=== PATIENT | male | born 1960 | race Caucasian/White ===

== ENCOUNTER 2017-10-16 11:19 | Inpatient (IN) ==
[2017-10-16] MEDS ORDERED: Ondansetron 4 MG/2 ML VIAL IVP PRN (14:44)
[2017-10-16] MEDS ORDERED: Naloxone 0.4 MG/ML INJ IVP PRN (14:44)
--- NOTE | 2017-10-16 14:55 | Internal Med History&Physical ---
<Salvador Pérez J - Last Filed: 10/16/17 17:23> Date of Encounter: 10/16/17 Time of Encounter: 14:52 Assessment and Plan (1) GI bleed Status: Acute Bright red blood and melena with bowel movements today. Prior history of GI bleed. Prior Kelly repair. Patient appears to have L GIB. Denies any palpitations, tachycardia, dizziness. Remains hemodynamically stable. H&H 12.2 /34.3. Patient reports he had a colonoscopy approximately 4-1/2 years ago without significant findings. GI Dr. Gilbert has seen the patient and is planning for EGD/C-Scopy in a.m. Prednisone Serial H&H every 6 hours Type and screen Clear liquid diet for now and nothing by mouth at midnight Continue PPI drip EPCDs DVT prophylaxis continues telemetry, SPO2 monitoring CBC D and BMP in the a.m. Qualifiers: GI bleed type/associated pathology: melena Qualified Code(s): K92.1 - Melena (2) Syncope Status: Acute Reporting a syncopal event this morning likely secondary to blood loss from lower GI bleed. Reports that he had a loss of consciousness for just a few seconds. Denies any tachycardia, palpitations, chest pain, lightheadedness at this time. No active bleeding noted. Remains hemodynamically stable. EKG negative for ischemia, lab work unremarkable Up with assist only Continuous telemetry Qualifiers: Encounter type: initial encounter Qualified Code(s): T67.1XXA - Heat syncope, initial encounter Internal Medicine - H&P: HPI Chief complaint: gi bleed Admitted From: Home Plans for Post Hospital Care: Home History of present illness: Mr. Howard is a 57 year old male in Kelly fundoplication and prior history of GI bleed presents today with a mix of bright red and dark red blood with bowel movements and a syncopal event. No history of alcohol abuse, no NSAID use, no weight loss, change in bowel pattern, stool size and no prior history of colon cancer or family history of colon cancer. Patient reports he is not on any blood thinners. Hemoglobin and hematocrit stable at 12.2/34.3 Past Med Surg Social Fam HX - Past Medical History Medical history: asthma, GERD, GI bleed Psychiatric history: no psych history - Past Surgical History Surgical History: herniorrhaphy - Social History Smoking Status: Former smoker Smokeless Tobacco Status: No Alcohol use: occasionally Drug use: none - Additional Family History Additional family history: Noncontributory, no family history of colon cancer Internal Medicine - H&P: Meds 3 Allergy/AdvReac Type Severity Reaction Status Date / Time codeine Allergy Swelling Verified 10/16/17 14:51 of Lip/Tongue/Throat All Systems PM: A 10-system review of systems was performed and is negative for pertinent findings except as documented above in the HPI. Review of systems: REVIEW OF SYSTEMS GENERAL: Negative for any nausea, vomiting, fevers, chills, or weight loss. NEUROLOGIC: Negative for any blurry vision, blind spots, double vision, facial asymmetry, dysphagia, dysarthria, hemiparesis, hemisensory deficits, vertigo, ataxia. HEENT: Negative for any head trauma, neck trauma, neck stiffness, photophobia, phonophobia, sinusitis, rhinitis. CARDIAC: Negative for any chest pain, dyspnea on exertion, paroxysmal nocturnal dyspnea, peripheral edema. PULMONARY: Negative for any shortness of breath, wheezing, COPD, or TB exposure. GASTROINTESTINAL: Negative For nausea, vomiting,, change in stool size, shape, bowel pattern. positive for red blood per rectum, melena, and right lower quadrant abdominal pain GENITOURINARY: Negative for any dysuria, hematuria, incontinence. INTEGUMENTARY: Negative for any rashes, cuts, insect bites. RHEUMATOLOGIC: Negative for any joint pains, photosensitive rashes, history of vasculitis or kidney problems. HEMATOLOGIC: Negative for any abnormal bruising, frequent infections or bleeding. - Constitutional Vitals: Temp Pulse Resp BP Pulse Ox 98.7 F 76 15 127/74 98 10/16/17 13:51 10/16/17 13:51 10/16/17 13:51 10/16/17 13:51 10/16/17 13:51 General appearance: Present: cooperative, A&O X 3, no acute distress, answers questions appropriately Exam: PHYSICAL EXAMINATION: GENERAL: The patient is a well-developed, well-nourished male in no apparent distress. He is alert and oriented x3. VITAL SIGNS: Temperature 97.9, respiratory rate 16 and 100% on room air, 73 pulse rate and blood pressure of 120/75 HEENT: Head is normocephalic and atraumatic. Extraocular muscles are intact. Pupils are equal, round, and reactive to light and accommodation. Nares appeared normal. Mouth is well hydrated and without lesions. Mucous membranes are moist. Posterior pharynx clear of any exudate or lesions. NECK: Supple. No carotid bruits. No lymphadenopathy or thyromegaly. LUNGS: Clear to auscultation. HEART: Regular rate and rhythm without murmur. ABDOMEN: Soft, and nondistended. Positive bowel sounds. No hepatosplenomegaly was noted. Mild tenderness to palpation right lower quadrant and epigastrium. EXTREMITIES: Without any cyanosis, clubbing, rash, lesions or edema. NEUROLOGIC: Cranial nerves II through XII are grossly intact. PSYCHIATRIC: Flat affect, but denies suicidal or homicidal ideations. SKIN: No ulceration or induration present. Internal Med - H&P Results - Labs CBC & Chem 7: 10/16/17 15:28 10/16/17 16:03 - EKG Data -: EKG Interpreted by Myself EKG shows normal: sinus rhythm Rate: normal - EKG Data Prior EKG available for review: no Interpretation IM: normal EKG - Diagnostic Studies CT scan - abdomen Status: image reviewed by me Additional comments: CT of abdomen completed at [facility] shows haziness around the pylorus and first portion of duodenum which may be edema likely possible the patient has duodenitis or PUD. Additionally there is some mild thickness of the transverse colon - VTE Reasons for not Prescribing Prophylaxis: Medical contraindication <Diana Brooks - Last Filed: 11/10/17 08:12> Date of Encounter: 11/10/17 Internal Medicine - H&P: HPI History of present illness: Mr. Howard is a 57 year old male All Systems PM: A 10-system review of systems was performed and is negative for pertinent findings except as documented above in the HPI. - Constitutional Vitals: Temp Pulse Resp BP Pulse Ox 98.2 F 69 16 123/63 97 10/18/17 15:46 10/18/17 15:46 10/18/17 15:46 10/18/17 15:46 10/18/17 15:46 Internal Med - H&P Results - Labs CBC & Chem 7: 10/18/17 07:17 10/18/17 07:17 - Attending Attestation I personally and independently interviewed and examined the patient with CLOTH FEEDER, and I reviewed the patient's medical record with her. I am in agreement with the assessment and proposed treatment plan. I discussed my findings and recommendation with the patient and answer all questions. The patient's medical records were edited to accurately reflect this encounter.
[2017-10-16] MEDS: Pantoprazole 80 MG in 0.9 % Sodium Chloride 250 ML IVC SCH (15:25)
[2017-10-16] MEDS: 0.9 % Sodium Chloride 1,000 ML IVC SCH (15:26)
[2017-10-16] MEDS ORDERED: Pantoprazole 40 MG VIAL ONE (15:39)
[2017-10-16 15:40] LABS: Hematocrit 31.5 % (37.5-50.1); Hemoglobin 10.6 g/dL (12.9-16.9)
--- NOTE | 2017-10-16 15:41 | General Surgery Consult Note ---
Date of Encounter: 10/16/17 Time of Encounter: 15:39 Assessment and Plan (1) GI bleed Current Visit: Yes Status: Acute 57M with LGIB with associated syncope; currently does not report dizziness or light headedness; - CLD - NPO at midnight - bowel prep - serial h/h - full set up labs - plan for EGD/c-scopy in AM Qualifiers: GI bleed type/associated pathology: melena Qualified Code(s): K92.1 - Melena History of Present Illness Reason for consult: other (lower GI bleeding) History of present illness: 57M h/o GERD s/p marjan, otherwise healthy, prior bleeding episode (UGIB 2/2 gastric ulcers 2/2 NSAID use) in november 2016 who presented with symptomatic LGIB. Patient states that he experienced several episodes of syncope (lasting only a few seconds). He states that he had enough melena that it scared him and he presented for evaluation. No reports of use of NSAIDS, anticoagulants, EtOH abuse, liver or kidney issues nor prior masses, diverticulosis; His last colonoscopy was baout 5 years ago and he was given clearance for [address] scan was obtained which was reviewed and interpreted by me personally Past Med Surg Social Fam HX - Past Medical History Medical history: asthma, GERD, GI bleed Psychiatric history: no psych history - Past Surgical History Surgical History: herniorrhaphy, other (Marjan fundoplication) - Social History Smoking Status: Former smoker Smokeless Tobacco Status: No Alcohol use: occasionally Drug use: none - Additional Family History Additional family history: non contributory Medications and Allergies 3 Allergy/AdvReac Type Severity Reaction Status Date / Time codeine Allergy Swelling Verified 10/16/17 14:51 of Lip/Tongue/Throat Review of Systems All systems PM: A 10-system review of systems was performed and is negative for pertinent findings except as documented above in the HPI. General Surgery Exam Initial Vital Signs Pulse Pulse Ox 79 96 10/16/17 13:49 10/16/17 13:49 - General physical appearance well developed, well nourished, no distress - Eyes normal ocular movement - ENT normocephalic - Neck no lymphadectomy - Respiratory normal expansion, normal respiratory effort - Cardiovascular Cardiovascular exam: Present: RRR - Abdomen Abdomen general surgery: Present: soft, tender Abdominal Tenderness: Present: RLQ - Integumentary Integumentary general surgery: Present: warm and dry - Neurologic Present: CN 2-12 grossly intact - Musculoskeletal Present: other (FROM in UE/LE bilaterally) - Psychiatric Psychiatric general surgery: Present: A&Ox3 Exam Initial Vital Signs Pulse Pulse Ox 79 96 10/16/17 13:49 10/16/17 13:49 Results - Labs All other labs normal. - Imaging CT scan - abdomen: report reviewed, image reviewed CT scan - pelvis: report reviewed, image reviewed Consult Discharge Plan - Plan Referrals: Krystian Bcah DO [Primary Care Provider] -
[2017-10-16] MEDS ORDERED: Polyethylene Glycol 3350 255 GM POWDER PO ONE (15:48)
[2017-10-16 16:31] LABS: INR 1.1; Prothrombin Time 11.9 Seconds (9.4-12.1)
[2017-10-16 16:33] LABS: Alanine Aminotransferase 8 Units/L (7-52); Albumin 3.3 g/dL (3.5-5.7); Albumin/Globulin Ratio 1.9 (1.1-2.2); Alkaline Phosphatase 55 Units/L (34-104); Aspartate Amino Transferase 11 Units/L (13-39); BUN/Creatinine Ratio 21 (6-26); Bilirubin,Total 0.6 mg/dL (0.3-1.0); Blood Urea Nitrogen 20 mg/dL (6-20); Carbon Dioxide 24 mEq/L (23-29); Chloride 109 mEq/L (98-107); Globulin 1.7 g/dL (2.4-3.5); Glucose 119 mg/dL (70-105); Osmolality,Calculated 288 (280-300); Potassium 4.1 mEq/L (3.5-5.1); Sodium 137 mEq/L (136-145); eGFR For African Americans > 60 (> 60); eGFR For Non-African Americans > 60 (> 60)
[2017-10-16 16:34] LABS: Activated Partial Thrombo Time 27.9 Seconds (26.0-36.0)
[2017-10-16] MEDS ORDERED: SODIUM CHLORIDE/NAHCO3/KCL/PEG 4,000 ML SOLN.RECON PO ONE (17:00)
[2017-10-16 22:09] LABS: Hemoglobin 9.2 g/dL (12.9-16.9)
[2017-10-17] MEDS: 0.9 % Sodium Chloride 1,000 ML IVC SCH (01:02)
[2017-10-17] MEDS: Pantoprazole 80 MG in 0.9 % Sodium Chloride 250 ML IVC SCH ×2 (03:49→16:42)
[2017-10-17 05:56] LABS: Alanine Aminotransferase 7 Units/L (7-52); Albumin 2.9 g/dL (3.5-5.7); Albumin/Globulin Ratio 2.2 (1.1-2.2); Alkaline Phosphatase 52 Units/L (34-104); Aspartate Amino Transferase 11 Units/L (13-39); BUN/Creatinine Ratio 13 (6-26); Bilirubin,Total 0.4 mg/dL (0.3-1.0); Blood Urea Nitrogen 13 mg/dL (6-20); Calcium 7.7 mg/dL (8.6-10.3); Carbon Dioxide 25 mEq/L (23-29); Chloride 112 mEq/L (98-107); Globulin 1.3 g/dL (2.4-3.5); Glucose 104 mg/dL (70-105); Osmolality,Calculated 286 (280-300); Sodium 138 mEq/L (136-145); Total Protein 4.2 g/dL (6.4-8.9); eGFR For African Americans > 60 (> 60); eGFR For Non-African Americans > 60 (> 60)
[2017-10-17 06:06] LABS: INR 1.1
[2017-10-17 06:09] LABS: Activated Partial Thrombo Time 26.9 Seconds (26.0-36.0)
[2017-10-17 06:17] LABS: Basophils % 0.4 %; Eosinophils # 0.1 K/mcL (0.0-0.6); Eosinophils % 2.1 %; Hematocrit 24.9 % (37.5-50.1); Hemoglobin 8.5 g/dL (12.9-16.9); Immature Granulocytes % 0.2 % (0-4); Lymphocytes # 1.3 K/mcL (0.6-4.6); Mean Corpuscular HGB Conc 34.1 g/dL (31.6-35.5); Mean Corpuscular Hemoglobin 30.2 pg (28.0-33.3); Mean Corpuscular Volume 88.6 fL (83.0-100.0); Mean Platelet Volume 11.4 fL (9.4-12.4); Monocytes # 0.3 K/mcL (0.0-1.3); Monocytes % 6.1 %; Neutrophils # 3.1 K/mcL (1.6-8.9); Platelet Count 161 K/mcL (140-400); Red Blood Count 2.81 M/mcL (4.19-5.50); Red Cell Distribution Width 13.1 % (11.5-14.5); Segmented Neutrophils % 64.2 %
[2017-10-17] MEDS ORDERED: *HR* Midazolam HCl 5 MG/5 ML VIAL IVP ONE (08:04)
[2017-10-17] MEDS ORDERED: *HR* FentaNYL (PF) 100 MCG/2 ML VIAL ONE (08:05)
--- NOTE | 2017-10-17 08:25 | Pre-Sedation Evaluation ---
Pre-sedation evaluation - Pre-sedation checklist Date of procedure: 10/17/17 Procedure: egd/colon Recent Vitals: Last Vital Signs Temp 98.3 F 10/17/17 08:13 Pulse 72 10/17/17 08:13 Resp 16 10/17/17 08:13 BP 136/75 10/17/17 08:13 Pulse Ox 100 10/17/17 08:13 H&P (including ROS) documented in medical record: Yes Previous reaction to sedatives/anesthetics: No Dietary Status: NPO after Midnight Dentition: No loose teeth or bridges ASA Classification *see protocol: CLASS II-Mild systemic disease
[2017-10-17] MEDS ORDERED: *HR* Promethazine 25 MG/ML VIAL IVP ONE (08:26)
[2017-10-17] MEDS ORDERED: *HR* FentaNYL (PF) 100 MCG/2 ML VIAL IVP ONE (08:26)
[2017-10-17] MEDS: *HR* Midazolam HCl 5 MG/5 ML VIAL IVP ONE ×3 (08:30→08:58)
[2017-10-17] MEDS ORDERED: 0.9 % Sodium Chloride 1,000 ML IVC SCH (08:30)
[2017-10-17] MEDS ORDERED: Tetracaine/Benzocaine/Butamben 200MG/SPRAY (100SPY/BOT) MM ONE (08:33)
[2017-10-17 12:50] LABS: Hematocrit 25.5 % (37.5-50.1); Hemoglobin 8.7 g/dL (12.9-16.9)
--- NOTE | 2017-10-17 12:57 | General Surgery Progress Note ---
Date of Encounter: 10/17/17 Time of Encounter: 08:00 - Assessment and Plan (1) GI bleed Current Visit: Yes Status: Acute 57M with LGIB with associated syncope; currently does not report dizziness or light headedness; s/p EGD; no obvious lower and upper GI lesions to account for bleeding; - diet as tolerated - trend h/h - consider RBC tagged cell scan if continues to drop - transfuse per primary team - consider GI consult for push enteroscopy Qualifiers: GI bleed type/associated pathology: melena Qualified Code(s): K92.1 - Melena Subjective Patient reports: no new complaints, feels better, bowel movement (non bloody) Objective Vital Signs - Last 8 Hours Temp Pulse Resp BP Pulse Ox 10/17/17 11:29 97.8 F 67 16 96/66 100 10/17/17 09:15 75 16 104/54 99 10/17/17 09:10 71 16 92/54 100 10/17/17 09:05 78 16 105/60 98 10/17/17 09:00 74 16 109/62 100 10/17/17 08:55 72 16 88/39 100 10/17/17 08:50 69 16 100/60 100 10/17/17 08:45 80 16 122/63 100 10/17/17 08:40 72 16 118/60 100 10/17/17 08:35 78 16 112/57 100 10/17/17 08:30 75 16 118/69 100 10/17/17 08:13 98.3 F 72 16 136/75 100 10/17/17 07:20 98.3 F 68 14 113/56 100 Intake and Output 10/16/17 10/17/17 10/17/17 23:59 07:59 15:59 Intake Total 500 / 500 3250 / 3250 500 / 500 Output Total 600 / 600 550 / 550 Balance -100 / -100 2700 / 2700 500 / 500 Intake: IV Fluids 1250 / 1250 500 / 500 0.9 % Sodium Chloride 1,000 ML 1000 / 1000 500 / 500 @ 50 mls/hr IVC .Q20H YUNG Rx#: [id number] Protonix 80 MG In 0.9 % Sodium 250 / 250 Chloride 250 ML @ 25 mls/hr IVC .Q10H YUNG Rx#:[id number] Oral 500 / 500 2000 / 2000 Output: Urine 600 / 600 550 / 550 Other: Stool Size Moderate Moderate Stool Consistency liquid liquid Stool Color Blood Tinged # Voids 1 # Bowel Movements 1 Weight 77.9 kg Blood Glucose* 110 Patient Weight 10/17/17 23:59 Weight 77.9 kg - General physical appearance well developed, well nourished, no distress - Eyes normal ocular movement - Respiratory normal expansion, normal respiratory effort - Cardiovascular Cardiovascular exam: Present: RRR - Abdomen Abdomen: Present: soft, non tender - Integumentary no rash - Neurologic CN 2-12 grossly intact - Psychiatric oriented to time, oriented to person, oriented to place - Labs 10/17/17 12:28 10/17/17 05:10 Diabetes panel 10/16/17 10/17/17 Range/Units 16:03 05:10 Sodium 137 138 (136-145) mEq/L Potassium 4.1 4.0 (3.5-5.1) mEq/L Chloride 109 H 112 H (98-107) mEq/L Carbon Dioxide 24 25 (23-29) mEq/L BUN 20 13 (6-20) mg/dL Creatinine 0.94 1.01 (0.70-1.30) mg/dL Glucose 119 H 104 (70-105) mg/dL Calcium 8.0 L 7.7 L (8.6-10.3) mg/dL AST 11 L 11 L (13-39) Units/L ALT 8 7 (7-52) Units/L Alkaline Phosphatase 55 52 (34-104) Units/L Albumin 3.3 L 2.9 L (3.5-5.7) g/dL Calcium panel 10/16/17 10/17/17 Range/Units 16:03 05:10 Calcium 8.0 L 7.7 L (8.6-10.3) mg/dL Albumin 3.3 L 2.9 L (3.5-5.7) g/dL Pituitary panel 10/16/17 10/17/17 Range/Units 16:03 05:10 Sodium 137 138 (136-145) mEq/L Potassium 4.1 4.0 (3.5-5.1) mEq/L Chloride 109 H 112 H (98-107) mEq/L Carbon Dioxide 24 25 (23-29) mEq/L BUN 20 13 (6-20) mg/dL Creatinine 0.94 1.01 (0.70-1.30) mg/dL Glucose 119 H 104 (70-105) mg/dL Calcium 8.0 L 7.7 L (8.6-10.3) mg/dL Adrenal panel 10/16/17 10/17/17 Range/Units 16:03 05:10 Sodium 137 138 (136-145) mEq/L Potassium 4.1 4.0 (3.5-5.1) mEq/L Chloride 109 H 112 H (98-107) mEq/L Carbon Dioxide 24 25 (23-29) mEq/L BUN 20 13 (6-20) mg/dL Creatinine 0.94 1.01 (0.70-1.30) mg/dL Glucose 119 H 104 (70-105) mg/dL Calcium 8.0 L 7.7 L (8.6-10.3) mg/dL Total Bilirubin 0.6 0.4 (0.3-1.0) mg/dL AST 11 L 11 L (13-39) Units/L ALT 8 7 (7-52) Units/L Alkaline Phosphatase 55 52 (34-104) Units/L Albumin 3.3 L 2.9 L (3.5-5.7) g/dL - VTE Reasons for not Prescribing Prophylaxis: Medical contraindication Documentation of Mechanical Device: Intermittent pneumatic compression device Consult Discharge Plan - Plan Referrals: Krystian Bach DO [Primary Care Provider] - 10/24/17 1:45 pm
--- NOTE | 2017-10-17 19:01 | Internal Med Progress Note ---
Date of Encounter: 10/17/17 Time of Encounter: 11:00 - Assessment and plan (1) GI bleed Current Visit: Yes Status: Acute Assessment and plan: -General surgery following with recommendations to consider RBC tagged cell scan if continues to drop -Consider GI consult for push enteroscopy Qualifiers: GI bleed type/associated pathology: melena Qualified Code(s): K92.1 - Melena (2) Syncope Current Visit: Yes Status: Acute Assessment and plan: -Suspect secondary to acute blood loss anemia due to suspected GI bleed Qualifiers: Encounter type: initial encounter Qualified Code(s): T67.1XXA - Heat syncope, initial encounter - Subjective Interval history: Hemoglobin stable but continues to trend downward this morning Patient is hemodynamically stable - Constitutional Vitals: Temp Pulse Resp BP Pulse Ox 98.4 F 74 16 107/65 98 10/17/17 15:47 10/17/17 15:47 10/17/17 15:47 10/17/17 15:47 10/17/17 15:47 General appearance: Present: cooperative, A&O X 3, no acute distress, answers questions appropriately - Respiratory Respiratory exam: Present: CTAB. Absent: accessory muscle use, rales, rhonchi, wheezes - Cardiovascular Cardiovascular exam: Present: RRR, +S1, +S2. Absent: diastolic murmur, gallop, rubs, systolic murmur Internal Medicine: Result - Labs CBC & Chem 7: 10/17/17 12:28 10/17/17 05:10 Labs: Short CBC 10/16/17 10/17/17 10/17/17 Range/Units 21:58 05:10 12:28 WBC 4.8 (4.3-11.1) K/mcL Hgb 9.2 L 8.5 L 8.7 L (12.9-16.9) g/dL Hct 27.0 L 24.9 L 25.5 L (37.5-50.1) % Plt Count 161 (140-400) K/mcL Neutrophils # 3.1 (1.6-8.9) K/mcL BMP 10/17/17 05:10 Sodium 138 Potassium 4.0 Chloride 112 H Carbon Dioxide 25 BUN 13 Creatinine 1.01 Glucose 104 Calcium 7.7 L Liver Function 10/17/17 Range/Units 05:10 Total Bilirubin 0.4 (0.3-1.0) mg/dL AST 11 L (13-39) Units/L ALT 7 (7-52) Units/L Alkaline Phosphatase 52 (34-104) Units/L Albumin 2.9 L (3.5-5.7) g/dL - ABG Interpretation ABG results: PT/INR, D-dimer PT 12.0 Seconds (9.4-12.1) 10/17/17 05:10 - VTE Reasons for not Prescribing Prophylaxis: Medical contraindication Documentation of Mechanical Device: Intermittent pneumatic compression device Consult Discharge Plan - Plan Referrals: Krystian Bach DO [Primary Care Provider] - 10/24/17 1:45 pm
[2017-10-18] MEDS: Pantoprazole 80 MG in 0.9 % Sodium Chloride 250 ML IVC SCH ×2 (03:10→13:18)
[2017-10-18 07:30] LABS: Basophils % 0.4 %; Eosinophils # 0.2 K/mcL (0.0-0.6); Eosinophils % 3.3 %; Hematocrit 24.5 % (37.5-50.1); Hemoglobin 8.5 g/dL (12.9-16.9); Immature Granulocytes % 0.2 % (0-4); Lymphocytes # 1.2 K/mcL (0.6-4.6); Lymphocytes % 25.3 %; Mean Corpuscular HGB Conc 34.7 g/dL (31.6-35.5); Mean Corpuscular Hemoglobin 30.1 pg (28.0-33.3); Mean Corpuscular Volume 86.9 fL (83.0-100.0); Mean Platelet Volume 10.4 fL (9.4-12.4); Monocytes # 0.3 K/mcL (0.0-1.3); Monocytes % 5.7 %; Platelet Count 153 K/mcL (140-400); Red Blood Count 2.82 M/mcL (4.19-5.50); Segmented Neutrophils % 65.1 %
[2017-10-18 08:05] LABS: BUN/Creatinine Ratio 10 (6-26); Blood Urea Nitrogen 10 mg/dL (6-20); Calcium 8.2 mg/dL (8.6-10.3); Carbon Dioxide 26 mEq/L (23-29); Chloride 108 mEq/L (98-107); Glucose 99 mg/dL (70-105); Osmolality,Calculated 285 (280-300); Potassium 3.6 mEq/L (3.5-5.1); Sodium 138 mEq/L (136-145); eGFR For African Americans > 60 (> 60); eGFR For Non-African Americans > 60 (> 60)
--- NOTE | 2017-10-18 08:38 | General Surgery Progress Note ---
<Dereck North - Last Filed: 10/18/17 08:52> Date of Encounter: 10/18/17 Time of Encounter: 08:37 - Assessment and Plan (1) GI bleed Current Visit: Yes Status: Acute hgb drop 8.7 -> 8.5. currently clinically stable and asymptomatic. tolerating full diet. EGD on 10/16/2017 - no obvious lower and upper GI lesions to account for bleeding. - continue full diet - trend h/h - may consider tagged RBC if hgb continues to drop, but currently hgb is stable and patient is asymptomatic - consider GI consult for push enteroscopy Qualifiers: GI bleed type/associated pathology: melena Qualified Code(s): K92.1 - Melena Subjective Patient reports: no new complaints, feels better, pain is less, tolerating liquids well, tolerating a regular diet, voiding w/o difficulty, flatus, bowel movement, afebrile Narrative: Patient continues to feel like he's improving. he had a bowel movement prior to the scope yesterday, he reports no blood in his stool. Objective Vital Signs - Last 8 Hours Temp Pulse Resp BP Pulse Ox 10/18/17 07:17 98.0 F 66 16 117/64 96 10/18/17 04:38 98.1 F 77 19 112/64 98 Intake and Output 10/17/17 10/18/17 10/18/17 23:59 07:59 15:59 Intake Total 900 / 900 450 / 450 Output Total 1700 / 1700 700 / 700 Balance -800 / -800 -250 / -250 Intake: IV Fluids 250 / 250 Protonix 80 MG In 0.9 % Sodium 250 / 250 Chloride 250 ML @ 25 mls/hr IVC .Q10H YUNG Rx#:[id number] Oral 900 / 900 200 / 200 Output: Urine 1700 / 1700 700 / 700 Other: Meal Dinner Percent of Meal Consumed 100% # Voids 1 Weight 77.2 kg Patient Weight 10/18/17 23:59 Weight 77.2 kg - General physical appearance well developed, well nourished, no distress - Eyes normal ocular movement - ENT normal mucosa, no hearing loss, no congestion - Respiratory normal expansion, normal respiratory effort, clear to percussion, clear to auscultation - Cardiovascular Cardiovascular exam: Present: RRR - Abdomen Abdomen: Present: bowel sounds present, soft, non tender - Integumentary no rash, no growths, no abnormal pigmentation - Neurologic normal coordination, normal sensation - Psychiatric oriented to time, oriented to person, oriented to place, speech is normal, memory intact - Labs 10/18/17 07:17 10/18/17 07:17 Diabetes panel 10/18/17 Range/Units 07:17 Sodium 138 (136-145) mEq/L Potassium 3.6 (3.5-5.1) mEq/L Chloride 108 H (98-107) mEq/L Carbon Dioxide 26 (23-29) mEq/L BUN 10 (6-20) mg/dL Creatinine 1.04 (0.70-1.30) mg/dL Glucose 99 (70-105) mg/dL Calcium 8.2 L (8.6-10.3) mg/dL Calcium panel 10/18/17 Range/Units 07:17 Calcium 8.2 L (8.6-10.3) mg/dL Pituitary panel 10/18/17 Range/Units 07:17 Sodium 138 (136-145) mEq/L Potassium 3.6 (3.5-5.1) mEq/L Chloride 108 H (98-107) mEq/L Carbon Dioxide 26 (23-29) mEq/L BUN 10 (6-20) mg/dL Creatinine 1.04 (0.70-1.30) mg/dL Glucose 99 (70-105) mg/dL Calcium 8.2 L (8.6-10.3) mg/dL Adrenal panel 10/18/17 Range/Units 07:17 Sodium 138 (136-145) mEq/L Potassium 3.6 (3.5-5.1) mEq/L Chloride 108 H (98-107) mEq/L Carbon Dioxide 26 (23-29) mEq/L BUN 10 (6-20) mg/dL Creatinine 1.04 (0.70-1.30) mg/dL Glucose 99 (70-105) mg/dL Calcium 8.2 L (8.6-10.3) mg/dL - VTE Reasons for not Prescribing Prophylaxis: Medical contraindication Documentation of Mechanical Device: Intermittent pneumatic compression device Consult Discharge Plan - Plan Referrals: Krystian Bach DO [Primary Care Provider] - 10/24/17 1:45 pm <Reji Ortega - Last Filed: 10/18/17 13:27> Date of Encounter: 10/18/17 - Assessment and Plan (1) GI bleed Current Visit: Yes Status: Acute Qualifiers: GI bleed type/associated pathology: melena Qualified Code(s): K92.1 - Melena Objective Vital Signs - Last 8 Hours Temp Pulse Resp BP Pulse Ox 10/18/17 12:22 67 10/18/17 11:00 98.1 F 76 16 115/67 96 10/18/17 08:50 67 10/18/17 07:17 98.0 F 66 16 117/64 96 Intake and Output 10/17/17 10/18/17 10/18/17 23:59 07:59 15:59 Intake Total 900 / 900 450 / 450 490 / 490 Output Total 1700 / 1700 700 / 700 Balance -800 / -800 -250 / -250 490 / 490 Intake: IV Fluids 250 / 250 250 / 250 Protonix 80 MG In 0.9 % Sodium 250 / 250 250 / 250 Chloride 250 ML @ 25 mls/hr IVC .Q10H YUNG Rx#:[id number] Oral 900 / 900 200 / 200 240 / 240 Output: Urine 1700 / 1700 700 / 700 Other: Meal Dinner Breakfast Percent of Meal Consumed 100% 50% # Voids 1 Weight 77.2 kg Patient Weight 10/18/17 23:59 Weight 77.2 kg - Labs 10/18/17 07:17 10/18/17 07:17 Diabetes panel 10/18/17 Range/Units 07:17 Sodium 138 (136-145) mEq/L Potassium 3.6 (3.5-5.1) mEq/L Chloride 108 H (98-107) mEq/L Carbon Dioxide 26 (23-29) mEq/L BUN 10 (6-20) mg/dL Creatinine 1.04 (0.70-1.30) mg/dL Glucose 99 (70-105) mg/dL Calcium 8.2 L (8.6-10.3) mg/dL Calcium panel 10/18/17 Range/Units 07:17 Calcium 8.2 L (8.6-10.3) mg/dL Pituitary panel 10/18/17 Range/Units 07:17 Sodium 138 (136-145) mEq/L Potassium 3.6 (3.5-5.1) mEq/L Chloride 108 H (98-107) mEq/L Carbon Dioxide 26 (23-29) mEq/L BUN 10 (6-20) mg/dL Creatinine 1.04 (0.70-1.30) mg/dL Glucose 99 (70-105) mg/dL Calcium 8.2 L (8.6-10.3) mg/dL Adrenal panel 10/18/17 Range/Units 07:17 Sodium 138 (136-145) mEq/L Potassium 3.6 (3.5-5.1) mEq/L Chloride 108 H (98-107) mEq/L Carbon Dioxide 26 (23-29) mEq/L BUN 10 (6-20) mg/dL Creatinine 1.04 (0.70-1.30) mg/dL Glucose 99 (70-105) mg/dL Calcium 8.2 L (8.6-10.3) mg/dL - Attending Attestation I have personally seen and examined the patient. I have reviewed pertinent labs , imaging, progress notes, including this one. I agree with the above assessment and plan and wish to include the following... 57m with LGIB and associated symptoms s/p EGD, colonosocpy with no obvious source of bleeding; biopsy shows simply inflammation; - trend h/h - GI consult for outpatient push enteroscopy and possibly pill endosocpy - diet as tolerated - should patient begin to have similar symptoms, can consider scoping again vs RBC tagged scan - consider cardiology evaluation 2/ syncopal episodes - okay for discharge from surgery standpoint as patient is asymptomatic, HDS, and stable h/h
[2017-10-18 15:48] VITALS: BP 123/63
--- NOTE | 2017-10-18 16:58 | Discharge Summary ---
Date of Encounter: 10/18/17 Time of Encounter: 11:00 - Discharge Diagnosis (1) GI bleed Priority: Primary Status: Acute Qualifiers: GI bleed type/associated pathology: melena Qualified Code(s): K92.1 - Melena (2) Syncope Priority: Secondary Status: Acute Qualifiers: Encounter type: initial encounter Qualified Code(s): T67.1XXA - Heat syncope, initial encounter - Discharge Medications Home Medications: No Known Home Drugs 10/17/17 [History] Allergies/Adverse Reactions: 3 Allergy/AdvReac Type Severity Reaction Status Date / Time codeine Allergy Swelling Verified 10/16/17 14:51 of Lip/Tongue/Throat Date of admission: 10/16/17 13:28 Primary care physician: Krystian Bach, Consults: 10/16/17 14:41 Consult to Gastroenterology [CONS] Routine Consulting Provider: Gastroenterology [facility] Reason for Consult: GI bleed Time Notified: 14:42 Call Completed: Yes - Patient Status Disposition: Home, Self-Care - Discharge Instructions Follow Up With: Krystian Bach DO [Primary Care Provider] - 10/24/17 1:45 pm Gilberto Grace MD [Partnered Physician] - 10/23/17 2:30 pm Hospital course: Patient is a 57-year-old male with past medical history significant for Kelly fundoplication and prior history of GI bleed who presented on 10/16/17 with blood in stool. Patient reported a mix of bright red and dark red blood with bowel movements and a syncopal event. No history of alcohol abuse, no NSAID use, no weight loss , change in bowel pattern, stool size and no prior history of colon cancer or family history of colon cancer. Hemoglobin 10.6 on admission to the ER and was admitted for further workup and management for GI bleed. During patients hospital stay, general surgery was consulted for evaluation of lower/upper GI bleed and EGD was done which showed no active bleeding. Patient s hemoglobin remained stable and he was asymptomatic and therefore not transfused. Discussed with GI with recommendations of follow-up as outpatient for camera enteroscopy. He will be discharged to follow up primary care provider to monitor hemoglobin for any acute drops and to follow up with GI for further workup. - Time Spent with Patient Total time spent providing and/or coordinating discharge services: Less than 30 minutes - Constitutional Vitals: Temp Pulse Resp BP Pulse Ox 98.2 F 69 16 123/63 97 10/18/17 15:46 10/18/17 15:46 10/18/17 15:46 10/18/17 15:46 10/18/17 15:46 General appearance: Present: cooperative, A&O X 3, no acute distress, answers questions appropriately - Respiratory Respiratory exam: Present: CTAB. Absent: accessory muscle use, rales, rhonchi, wheezes - Cardiovascular Cardiovascular exam: Present: RRR, +S1, +S2. Absent: diastolic murmur, gallop, rubs, systolic murmur - VTE Reasons for not Prescribing Prophylaxis: Medical contraindication Documentation of Mechanical Device: Intermittent pneumatic compression device
== END 2017-10-18 17:40 | disposition home or self-care (01) | DRG 378 ==
LOC: SUATTDRO 13:28 → 2NNU 13:28
PROVIDERS: ADMIT Internal Medicine Nephrology; ATTEND Hospitalist
PROC: ENDOEBX (2017-10-17 15:30)